=== PATIENT | male | born 2000 | race Caucasian/White ===

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

== ENCOUNTER 2018-01-01 09:10 | Emergency (ER) | END 2018-01-01 10:19 | disposition home or self-care (01) ==

== ENCOUNTER 2018-09-17 10:40 | Emergency (ER) | payer OTHER ==
[~2018-09-17] VITALS: Ht 167.6 cm; Wt 108.6 kg
[~2018-09-17 10:40] MED LIST: ACET500C5 PO; ALB.5NB20 IH; AMOX500C2 PO; AZIT250T PO; CYCL10TA7 PO; D-ME473S2 PO; IBUP-1542 PO; NAPR-985 PO; NPH10OT LEFT EAR; NPH10OT RIGHT EAR
[2018-09-17 10:42] VITALS: BP 137/86; PULSE 97; RESP 18; Ht 167.6 cm; Wt 108.6 kg
[2018-09-17] MEDS ORDERED: KETOROLAC 30 MG INJ IM STA (12:04)
[2018-09-17] MEDS ORDERED: ACETAMINOPHEN 500 MG TAB PO STA (12:04)
--- NOTE | 2018-09-17 12:07 | ERD ---
ER Documentation Chief Complaint Chief Complaint back pain x 3 days HPI This is a 18-year-old male patient presents emergency room complaint of left lower back pain after wrestling with his little brother and carrying him at it awkward angle 3 days ago. No paresthesias, patient is ambulatory. No dysuria, no fevers, no bowel or bladder dysfunction. ROS All systems reviewed and are negative except as per history of present illness. Medications Home Meds Active Scripts Cyclobenzaprine Hcl* (Cyclobenzaprine Hcl*) 10 Mg Tablet, 10 MG PO BID for 5 Days, #10 TAB Prov:ANGEL GONGORA NP 09/17/18 Naproxen* (Naprosyn*) 500 Mg Tablet, 500 MG PO BID PRN for PAIN AND/OR INFLAMMATION for 14 Days, #30 TAB Prov:ANGEL GONGORA NP 09/17/18 Acetaminophen* (Tylophen*) 500 Mg Capsule, 1 CAP PO Q6H PRN for PAIN AND OR ELEVATED TEMP, #20 CAP Prov:DALTON RANDHAWA PA-C 01/01/18 Dextromethorphan Hb-Promethazine Hcl* (Promethazine DM* Syrup) 473 Ml Syrup, 5 ML PO Q6 PRN for COUGH, #100 ML Prov:DALTON RANDHAWA PA-C 01/01/18 Amoxicillin* (Amoxicillin*) 500 Mg Cap, 500 MG PO TID for 7 Days, CAP Prov:ROXIE LOPEZC 08/06/17 Neomycin/Polymyxin/Hydrocort* (Cortisporin* Otic) 10 Ml Susp, 4 DROP RIGHT EAR QID for 7 Days, EA Prov:ROXIE LOPEZ-C 08/06/17 Ibuprofen* (Motrin*) 600 Mg Tab, 600 MG PO Q6, #30 TAB Prov:ROXIE LOPEZ-C 08/06/17 Allergies Allergies: Coded Allergies: No Known Allergy (Unverified , 01/01/18) PMhx/Soc Medical and Surgical Hx: pt denies Medical Hx, pt denies Surgical Hx Hx Alcohol Use: No Hx Substance Use: No Hx Tobacco Use: No FmHx Family History: No diabetes, No coronary disease, No other Physical Exam Vitals Vital Signs Date Temp Pulse Resp B/P (MAP) Pulse Ox O2 O2 Flow FiO2 Time Delivery Rate 09/17/18 98.7 97 18 137/86 96 10:42 (103) Physical Exam Const: No acute distress Head: Atraumatic Eyes: Normal Conjunctiva, PERRL ENT: Normal External Ears, Nose and Mouth. Neck: Full range of motion. No meningismus. No lympthadenopathy Resp: Clear to auscultation bilaterally, equal chest rise, no wheezing Cardio: Regular rate and rhythm, no murmurs Abd: Soft, non tender, non distended. Normal bowel sounds, no organomegaly, no bruising Skin: No petechiae or rashes Ext: No cyanosis, or edema Neur: Awake and alert, clear speech, steady gait Psych: Normal Mood and Affect Back Exam: Skin: No bruising or rash Compartments: Soft Motor: ltd forward flexion to approx 45 deg, normal flex/extension of bilateral hip/knee/ankle/foot. Straight leg test -radiculopathy, ltd ROM due to tight hamstring muscles BL Sensation: Intact to light touch throughout, no paresthesia Bones: No midline TTP Results 24 hrs Laboratory Tests Test 09/17/18 12:29 Urine Color YELLOW Urine Clarity CLEAR Urine pH 5.0 Urine Specific [place] 1.020 Urine Ketones NEGATIVE mg/dL Urine Nitrite NEGATIVE mg/dL Urine Bilirubin NEGATIVE mg/dL Urine Urobilinogen NEGATIVE mg/dL Urine Leukocyte Esterase NEGATIVE Enrique/ul Urine Microscopic RBC 1 /HPF Urine Microscopic WBC 1 /HPF Urine Mucus FEW /HPF Urine Hemoglobin 1+ mg/dL Urine Glucose NEGATIVE mg/dL Urine Total Protein NEGATIVE mg/dl Current Medications Medications Dose Sig/Dolores Start Time Status Last (Trade) Ordered Route PRN Stop Time Admin Dose Reason Admin Ketorolac 30 mg ONCE STAT 09/17/18 DC 09/17/18 Tromethamine IM 12:04 12:13 (Toradol) 09/17/18 12:06 1,000 mg ONCE STAT 09/17/18 DC 09/17/18 Acetaminophen PO 12:04 12:13 (Tylenol 09/17/18 12:06 Tab) Procedures/MDM PROCEDURES/MDM DIAGNOSTIC IMAGING: Not indicated as patient has no trauma, no paresthesia, no final point tenderness LAB INTERPRETATION: No hematuria, no leukocyte Estrace or nitrites -Medications: Toradol Patient tolerated medication well with no adverse reactions. Patient reported improvement in pain. Patient with improved range of motion. MDM: Patient is able to ambulate to treatment area without assistance. Patient is seated on the stretcher without obvious distress. There is no surface trauma. Muscle tenderness localized to palpation over left low back musculature, no spinal or hip tenderness, no spasms, no step-off or deformity, no CVA tenderness to percussion, patient is able to stand erect. Heel and toe walk with good strength Straight leg raise negative for radiculopathy sensation to light touch is intact. Due to patient's presentation today there is low suspicion for malignancy, infection, epidural abscess, cauda equina syndrome, herniation, AAA. Patient's musculoskeletal symptoms have stabilized while they have been evaluated in the department and are appropriate for outpatient work up. Patient is being discharged home with instructions to follow-up with primary care provider. Patient is also provided prescription for NSAID with instructions for use of heat, ice, stretching. Red flags discussed, patient verbalized understanding of signs and symptoms to return to emergency room. DISPOSITION and PLAN: RX: Taya Lopez The patient has been discharge home to follow-up with community physician. Departure Diagnosis: Primary Impression: Lumbar strain Encounter type: initial encounter Qualified Codes: S39.012A - Strain of muscle, fascia and tendon of lower back, initial encounter Condition: Stable ANGEL GONGORA NP Sep 17, 2018 12:07
== END 2018-09-17 13:45 | disposition home or self-care (01) ==
LOC: FTE 10:40
DX: S39.012A Strain of muscle, fascia and tendon of lower back, initial encounter (principal); X50.0XXA Overexertion from strenuous movement or load, initial encounter; Y92.9 Unspecified place or not applicable
CPT/HCPCS: 81001; 96372; J1885; Z7502; Z7610